=== PATIENT | female | born 1955 | race Caucasian/White ===

== ENCOUNTER → 2016-09-12 | Outpatient (CLI) | payer BC | LOC: FIMAGING 12:02 | DX: Z12.31 Encounter for screening mammogram for malignant neoplasm of breast (principal) | CPT/HCPCS: G0202 ==

== ENCOUNTER → 2016-09-22 | Outpatient (CLI) | payer BC | LOC: FIMAGING 12:47 | DX: R92.8 Other abnormal and inconclusive findings on diagnostic imaging of breast (principal) | CPT/HCPCS: G0206 ==

== ENCOUNTER → 2016-11-12 | Outpatient (CLI) | payer BC | LOC: FIMAGING 14:06 | PROVIDERS: ATTEND Family Medicine | DX: Z13.820 Encounter for screening for osteoporosis (principal); M85.80 Other specified disorders of bone density and structure, unspecified site; Z78.0 Asymptomatic menopausal state; E07.9 Disorder of thyroid, unspecified; Z90.710 Acquired absence of both cervix and uterus; Z90.721 Acquired absence of ovaries, unilateral; Z85.038 Personal history of other malignant neoplasm of large intestine ==

== ENCOUNTER 2017-06-07 07:29 | Day surgery (SDC) | payer BC ==
[2017-06-07] MEDS ORDERED: fentaNYL 100 MCG/2 ML INJ ONE (07:44)
[2017-06-07] MEDS ORDERED: FLUMAZENIL 0.5 MG/5 ML MDV IVP ONE (07:44)
[2017-06-07] MEDS ORDERED: MIDAZOLAM 2 MG/2 ML VIAL ONE (07:44)
[2017-06-07 08:04] LABS: PLATELET COUNT 196 10^3/uL (150-400)
[2017-06-07 08:16] LABS: INR 0.9 (0.83-1.16); PROTIME(PATIENT) 12.4 SEC (12.0-15.0)
[2017-06-07] MEDS ORDERED: MIDAZOLAM 2 MG/2 ML VIAL IVP PRN (08:25)
[2017-06-07] MEDS ORDERED: fentaNYL 100 MCG/2 ML INJ IVP PRN (08:25)
[2017-06-07] MEDS ORDERED: FLUMAZENIL 0.5 MG/5 ML MDV IVP PRN (08:25)
[2017-06-07] MEDS ORDERED: PROTAMINE SULFATE 50 MG/5 ML VIAL IVP PRN (08:25)
[2017-06-07] MEDS ORDERED: MEPERIDINE 25 MG/ML SYR IVP PRN (08:25)
[2017-06-07] MEDS ORDERED: NALOXONE HCL 0.4 MG/ML INJ IVP PRN (08:25)
[2017-06-07] MEDS ORDERED: GLUCAGON HCL 1 MG VIAL IVP PRN (08:25)
[2017-06-07] MEDS ORDERED: NS 1,000 ML IV SCH (08:30)
--- NOTE | 2017-06-07 09:06 | PDGENHP ---
History & Physical Chief Complaint: Retrperitoneal mass History of Present Illness: 61 yo woman with history of colon cancer. ? recurrence Relevant Physical Exam: no complaints Cardiorespiratory Assessment: Clear lungs. RRR.
--- NOTE | 2017-06-07 09:07 | PDPROPOC ---
Sedation Plan of Care Sedation Plan of Care: mental status noted (alert) ASA Classification: ASA 2 Planned drugs: fentanyl, midazolam Mallampati Score: Class 1 Mallampati Reference Image: Patient passed 3-3-2 rule?: Yes
[2017-06-07] MEDS ORDERED: ONDANSETRON 4 MG/2 ML VIAL ONE (09:11)
--- NOTE | 2017-06-07 09:58 | PDRADPN ---
Radiology Procedure Note Date of Procedure: 06/07/17 Radiologist: Corbin Arnold Forge Heater(s): BREEZY Dorsey Anesthesiologist: none Anesthesia: IV Sedation (versed and fentanyl zofran 4mg prior to biopsy for nausea) Pre-op Diagnosis: retroperitoneal mass Post-op Diagnosis: retroperitoneal mass Indication: Mass. h/o of colon cancer. possible mets. Procedure: CT guided biopsy RT retroperitoneal mass Finding(s): No bleeding or immediate complication Inf/Abcess present in the surg proc area at time of surgery?: No EBL: (None) Complications: No immediate complication Specimen(s): 18 ga cores x4 in formalin to lab
[2017-06-07] MEDS ORDERED: ACETAMINOPHEN 325 MG TAB PO PRN (09:59)
[2017-06-07] MEDS ORDERED: ONDANSETRON 4 MG/2 ML VIAL IVP PRN (09:59)
[2017-06-07 10:56] VITALS: BP 99/64; RESP 17; TEMP 208.4
[2017-06-07 10:58] VITALS: PULSE 78; O2SAT 94
== END 2017-06-07 10:59 | disposition home or self-care (01) ==
LOC: FIMAGING 07:29
PROVIDERS: ATTEND Internal Medicine Hematology & Oncology
PROC: 0WBH3ZX Excision of Retroperitoneum, Percutaneous Approach, Diagnostic (ICD-10-PCS; principal; 2017-06-07 09:55)
DX: C78.6 Secondary malignant neoplasm of retroperitoneum and peritoneum (principal); Z85.038 Personal history of other malignant neoplasm of large intestine; Z92.21 Personal history of antineoplastic chemotherapy; D50.9 Iron deficiency anemia, unspecified; E03.9 Hypothyroidism, unspecified; G62.9 Polyneuropathy, unspecified; Z90.710 Acquired absence of both cervix and uterus; Z88.2 Allergy status to sulfonamides
CPT/HCPCS: J2250; J2310; J2405; J3010

== ENCOUNTER 2017-06-22 10:16 | Day surgery (SDC) | payer BC ==
--- NOTE | 2017-06-21 08:51 | GHP ---
[f rep st] PREOP HISTORY AND PHYSICAL DATE OF ADMISSION: 06/22/2017 CHIEF COMPLAINT: Recurrent colon cancer. HISTORY OF PRESENT ILLNESS: Nancy is a very pleasant 61-year-old woman who was originally diagnosed wi th colon cancer in 2015. She underwent surgery and 12 cycles of FOLFOX. She had her port removed in August 2016 after completing therapy. She returned to her oncologist complaining of upper abdominal discomfort. CT scan revealed a 7 cm mass in her upper abdomen, suspected peritoneal recurrence. The PET-CT on 06/08/2017 showed a right-sided abdominal mesenteric/retroperitoneal metastatic adenopathy with the largest lesion measuring 4.8 x 4.8 cm. She also had a recent EGD, the results of which I d o not have a copy of. Per the patient, there was concern that the mass penetrated her duodenum resul ting in partial blockage. She has an upcoming consultation with the [facility] at [facility] on Monday. She is planning to begin chemotherapy as soon as possible and will require a port. PAST MEDICAL HISTORY: Colon cancer, hyperlipidemia, hypothyroidism, sciatica. PAST SURGICAL HISTORY: Ankle repair, , colectomy, cystoscopy, hysterectomy. ALLERGIES: Bactrim, sulfa, vitamin E. FAMILY MEDICAL HISTORY: Alpha-1 antitrypsin deficiency, cardiac arrhythmia, coronary artery disease, stroke, hyperlipidemia, hypertension, hypothyroidism, oral carcinoma, osteopenia. SOCIAL HISTORY: She is . She has 1 child. She denies tobacco, alcohol or recreational drug use. REVIEW OF SYSTEMS: 10-point review of systems negative aside from HPI. PHYSICAL EXAMINATION: GENERAL: Well-developed, well-nourished woman, no acute distress. HEENT: No rmocephalic, atraumatic. No hearing deficits. Pupils equal and round. No scleral icterus. Mucous membranes moist. NECK: Trachea midline. RESPIRATORY: Clear to auscultation bilaterally. No increas ed work of breathing. CARDIOVASCULAR: No peripheral edema. Regular rate and rhythm. CHEST: Well-heal ed left-sided incision from previous port removal. SKIN: Warm and dry. MUSCULOSKELETAL: Normal gait , normal nails. PSYCHIATRIC: Mood and affect normal. NEUROLOGIC: Grossly intact. IMPRESSION AND PLAN: 61-year-old woman with recurrent colon cancer. She will require a port for juan m motherapy. We will attempt placement on the right side. We discussed the risks of surgery, includin g but not limited to, heart attack, stroke, blood clots or . We discussed risk of infection, bl eeding, pneumothorax, and need for device removal. She understands the risks and would like to proce ed. The patient was additionally seen by Dr. Honey Mesa who agrees with the above impression and pl an. /[id number]/MODL
[2017-06-22] MEDS ORDERED: LR 1,000 ML IV ONE (10:25)
[2017-06-22] MEDS ORDERED: ceFAZolin 2 GM/SWFI 2 GM/20 ML SYR IVP ONE (10:25)
[2017-06-22] MEDS ORDERED: LIDOCAINE 1% 2 ML INJ ID PRN (10:25)
[2017-06-22] MEDS ORDERED: BUPIVACAINE 0.5% 30 ML SDV ONE (10:36)
[2017-06-22] MEDS ORDERED: LIDOCAINE 1% 2 ML INJ ONE (10:40)
--- NOTE | 2017-06-22 10:43 | PDHPUP ---
History & Physical Update H&P update statement: This history and physical update is based on an assessment of the patient which was completed after admission or registration (within 24 hours), but prior to the surgery/procedure. H&P update: H&P reviewed & patient examined, no change in patient's condition since H&P completed
[2017-06-22] MEDS ORDERED: MIDAZOLAM 2 MG/2 ML VIAL ONE (11:38)
[2017-06-22] MEDS ORDERED: fentaNYL 100 MCG/2 ML INJ ONE (11:52)
[2017-06-22] MEDS ORDERED: DEXAMETHASONE 4 MG/ML VIAL ONE (11:52)
[2017-06-22] MEDS ORDERED: PROPOFOL 200 MG/20 ML VIAL ONE (11:52)
[2017-06-22] MEDS ORDERED: KETOROLAC 30 MG/1 ML SDV ONE (11:53)
[2017-06-22] MEDS ORDERED: LIDOCAINE 2% 5 ML SDV ONE (11:53)
[2017-06-22] MEDS ORDERED: ONDANSETRON 4 MG/2 ML VIAL ONE (11:53)
[2017-06-22] MEDS ORDERED: MIDAZOLAM 2 MG/2 ML VIAL IVP ONE (12:20)
[2017-06-22] MEDS ORDERED: ONDANSETRON 4 MG/2 ML VIAL IVP PRN (12:23)
[2017-06-22] MEDS ORDERED: HYDROCODONE/APAP 5/325 TAB PO PRN (12:23)
[2017-06-22] MEDS ORDERED: OXYCODONE/APAP 5/325 TAB PO PRN (12:23)
[2017-06-22] MEDS ORDERED: fentaNYL 100 MCG/2 ML INJ IVP PRN (12:23)
[2017-06-22] MEDS ORDERED: LR 500 ML IV PRN (12:23)
[2017-06-22] MEDS ORDERED: PROMETHAZINE HCL 25 MG/ML INJ IVP PRN (12:23)
[2017-06-22] MEDS ORDERED: MEPERIDINE 25 MG/ML SYR IVP PRN (12:23)
[2017-06-22] MEDS ORDERED: ACETAMINOPHEN 500 MG TAB PO PRN (12:23)
[2017-06-22] MEDS ORDERED: NALOXONE HCL 0.4 MG/ML INJ IVP PRN (12:23)
--- NOTE | 2017-06-22 12:23 | PDANEPAE ---
ANE Past Medical History - Cardiovascular History Hx Hypertension: No Hx Arrhythmias: No Hx Chest Pain: No Hx Coronary Artery / Peripheral Vascular Disease: No Hx CHF / Valvular Disease: No Hx Palpitations: No - Pulmonary History Hx COPD: No Hx Asthma/Reactive Airway Disease: No Hx Recent Upper Respiratory Infection: No Hx Oxygen in Use at Home: No Hx Sleep Apnea: No Sleep Apnea Screening Result - Last Documented: Negative Pulmonary History Comment: denies SOB - Neurologic History Hx Cerebrovascular Accident: No Hx Seizures: No Hx Dementia: No - Endocrine History Hx Diabetes: No Hypothyroid: Yes Hyperthyroid: No Obesity: no Endocrine History Comment: hypothyroid - Renal History Hx Renal Disorders: No Renal History Comment: current UTI - on Antibx - Liver History Hx Hepatic Disorders: No - Neurological & Psychiatric Hx Hx Neurological and Psychiatric Disorders: Yes Neurological / Psychiatric History Comment: neuropathy toes and fingers - Cancer History Hx Cancer: Yes Cancer History Comment: colon,bladder - Congenital Disorder History Hx Congenital Disorders: No - GI History GERD: no Hx Gastrointestinal Disorders: Yes Gastrointestinal History Comment: frequent diarrhea after recent sx, mass near duodenumwith partial blockage - Other Health History Other Health History: bruises easily. eczma on right arm and left shoulder. temp crown 18th tooth left lower molar - Chronic Pain History Chronic Pain: Yes (lowerback and ;ower abdomen) - Surgical History Prior Surgeries: colectomy, total hysterectomy,partial bladder resection w/sm intestine augmentaion,appy on 01-12-16; R ankle reconstruction, C.section. ANE Review of Systems Review of Systems: - Exercise capacity METS (RN): 5 METS ANE Patient History - Allergies Allergies/Adverse Reactions: copper Allergy (Severe, Verified 06/21/17 16:09) Other-Enter Comments Sulfa (Sulfonamide Antibiotics) Allergy (Mild, Verified 06/21/17 16:09) Rash vitamin E (d-alpha tocopherol) Allergy (Mild, Verified 06/21/17 16:09) Other-Enter Comments - Home Medications Home Medications: Synthroid Dose Unk 10/12/12 [Last Taken 06/22/17 05:00] Alpha-Lpoic Acid 06/06/17 [Last Taken 06/18/17] Aspirin 81mg (*) 06/06/17 [Last Taken 05/31/17] Fish Oil 1,000 mg Capsule 06/06/17 [Last Taken 06/18/17] - NPO status NPO Since - Liquids (Date): 06/22/17 NPO Since - Liquids (Time): 06:00 NPO Since - Solids (Date): 06/21/17 NPO Since - Solids (Time): 23:30 - Anes Hx Anes Hx: no prior problems - Smoking Hx Smoking Status: Never smoked - Alcohol Use Alcohol Use: Rarely - Family Anes Hx Family Anes Hx: neg - N/A Family Hx Anesthesia Complications: SISTER EXCESSIVE NAUSEA ANE Labs/Vital Signs - Vital Signs Blood Pressure: 103/65 Heart Rate: 64 Respiratory Rate: 16 O2 Sat (%): 96 Height: 167.64 cm Weight: 62.142 kg ANE Physical Exam - Airway Neck exam: FROM Mallampati Score: Class 1 Mouth exam: normal dental/mouth exam - Pulmonary Pulmonary: no respiratory distress, no rales or rhonchi, clear to auscultation - Cardiovascular Cardiovascular: regular rate and rhythym, no murmur, rub, or gallop - ASA Status ASA Status: II ANE Anesthesia Plan Anesthesia Plan: GA w LMA Total IV Anesthesia: No
--- NOTE | 2017-06-22 12:32 | POSTOPPROG ---
Post Op Note Date of Operation: 06/22/17 Surgeon: Honey Mesa Anesthesiologist: kurt Anesthesia: GET(General Endotracheal) Pre-op Diagnosis: colon ca Post-op Diagnosis: same Indication: 61 yo with colon cancer Procedure: r subclavian port Findings: tip ra Inf/Abcess present in the surg proc area at time of surgery?: No Depth: Superfical (Skin SQ) EBL: Minimal Specimen(s): none
[2017-06-22 13:15] VITALS: TEMP 97.7
[2017-06-22 14:13] VITALS: BP 126/84; PULSE 53; RESP 14; O2SAT 98
--- NOTE | 2017-06-22 14:14 | POSTANESTH ---
Post Anesthetic Evaluation Cardiovascular Status: Normal, Stable Respiratory Status: Normal, Stable Level of Consciousness/Mental Status: Can Participate in Eval Pain Control: Adequate, Prn Tx Ordered Nausea/Vomiting Control: Adequate, Prn Tx Ordered Complications Possibly Related to Anesthesia: None Noted
--- NOTE | 2017-06-22 16:58 | GOP ---
[f rep st] OPERATIVE REPORT DATE OF OPERATION: 06/22/2017 SURGEON: Honey Mesa MD ANESTHESIA: General. ANESTHESIOLOGIST: Dr. Kingsley Howe PREOPERATIVE DIAGNOSIS: Recurrent colon cancer. POSTOPERATIVE DIAGNOSIS: Recurrent colon cancer. PROCEDURE PERFORMED: Right subclavian PowerPort placement. FINDINGS: Tip in the right atrium. SPECIMENS: None. ESTIMATED BLOOD LOSS: 5 mL. INDICATIONS: The patient is a 61-year-old woman with recurrent colon cancer. She presents for port. DESCRIPTION OF PROCEDURE: Patient was brought into the operating room and placed supine on the table, and general anesthesia was administered. Her bilateral neck and chest were prepped and draped in the usual sterile fashion. I infiltrated all sites with 0.5% Marcaine prior to making incisions. She was placed in the Trendelenburg position. I accessed her right subclavian vein on the first attempt with dark return of blood flow. I threaded the guidewire and removed the needle. I created a pocket to accommodate the port in the right chest. I tunneled this up to the insertion site. Under fluoroscopy, I saw that the guide wire was in the inferior vena cava. I measured the catheter and cut it to size. Using the Seldinger technique, I placed a dilator and sheath over the wire and removed the wire and the dilator. I threaded the catheter through the sheath and peeled away the sheath. Placement was confirmed with fluoroscopy. The port withdrew blood easily and was flushed with heparin. The pocket was closed with 3-0 Vicryl followed by 4-0 Monocryl and Dermabond applied. She was awakened in the operating room, extubated, and transferred to PACU in stable condition. /[id number]/MODL MTDD
== END 2017-06-22 14:13 | disposition home or self-care (01) ==
LOC: FSGY 10:16
PROVIDERS: ATTEND Surgery
PROC: B51MYZA Fluoroscopy of Right Upper Extremity Veins using Other Contrast, Guidance (ICD-10-PCS; 2017-06-22)
PROC: 02HV33Z Insertion of Infusion Device into Superior Vena Cava, Percutaneous Approach (ICD-10-PCS; principal; 2017-06-22 11:30)
PROC: 0JH60XZ Insertion of Tunneled Vascular Access Device into Chest Subcutaneous Tissue and Fascia, Open Approach (ICD-10-PCS; principal; 2017-06-22 11:30)
DX: C18.7 Malignant neoplasm of sigmoid colon (principal); E78.5 Hyperlipidemia, unspecified; E03.9 Hypothyroidism, unspecified; M54.30 Sciatica, unspecified side; Z87.891 Personal history of nicotine dependence; Z92.21 Personal history of antineoplastic chemotherapy; Z82.49 Family history of ischemic heart disease and other diseases of the circulatory system; Z90.49 Acquired absence of other specified parts of digestive tract; Z90.710 Acquired absence of both cervix and uterus; Z88.0 Allergy status to penicillin
CPT/HCPCS: C1788; J0690; J1100; J1642; J1885; J2250; J2405; J2704; J3010

== ENCOUNTER → 2017-10-18 | Outpatient (CLI) | payer BC | LOC: FIMAGING 08:39 | PROVIDERS: ATTEND Family Medicine | DX: Z12.31 Encounter for screening mammogram for malignant neoplasm of breast (principal) ==